=== PATIENT | female | born 2005 | race African-American/Black ===

== ENCOUNTER 2023-04-15 16:58 | Emergency (ER) | payer OTHER, SELFPAY ==
--- NOTE | ~2023-04-15 | CT_ITS ---
EXAMINATION: CT abdomen pelvis w con DATE: 04/15/2023 18:58 INDICATION: RLQ tenderness TECHNIQUE: Computed tomography (CT) of the abdomen and pelvis was performed with 100 mL Omnipaque-350 intravenous contrast. Automated exposure control and iterative reconstruction technique were employe d. The dose-length product was 176.13 mGy-cm. COMPARISON: None. FINDINGS: Lower thorax: Unremarkable Liver: Normal. Biliary/Gallbladder: Gallbladder is normal. No bile duct dilation. Pancreas: No mass or duct dilation. Spleen: Normal. Adrenals:No mass. Kidneys: Contrast noted peripherally in the papillary regions. Multifocal filling defects in the ricardo l calyces bilaterally, left greater than right. Simple right lower pole cyst. No hydronephrosis. No o bstructing calcification or mass.. GI tract: Distal esophageal and gastric wall edema. No small or large bowel dilation. Appendix not co nfidently visualized. No cecal wall thickening. No definite right lower quadrant inflammatory change. Mesentery/Peritoneum: No ascites, mass, or free air. Retroperitoneum: No mass. Pelvis: Heterogeneous deep pelvic fat. Indistinct uterine margin. Mild bladder wall edema and inflamm atory change. Small right ovarian cyst or dominant follicle. Soft Tissues: Soft tissues and body wall unremarkable. Bones: No acute osseous finding. IMPRESSION: Mild esophagitis/gastritis. 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 Appendix not confidently visualized. No cecal wall thickening or definite right lower quadrant inflam matory change. Suggestion of cystitis and inflammatory changes in the uterus/pelvis as can be seen with PID. Correla te with urinalysis and pelvic examination. Reviewed, dictated and finalized at location K. IMPRESSION: Mild esophagitis/gastritis. 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 Appendix not confidently visualized. No cecal wall thickening or definite right lower quadrant inflammatory change. Suggestion of cystitis and inflammatory changes in the uterus/pelvis as can be seen with PID. Correlate with urinalysis and pelvic examination.
[2023-04-15 17:03] VITALS: BP 111/64; PULSE 90; RESP 16; TEMP 36.7; O2SAT 100
[2023-04-15 17:24] LABS: Basophils Percent Auto 0.2 % (0.2-1.2); Eosinophils Percent Auto 0.5 % (0-4.4); Hematocrit 37.6 % (37.0-47.0); Hemoglobin 11.8 g/dL (12.0-15.0); Immature Granulocyte Absolute 0.03 K/mm3 (0.00-0.031); Immature Granulocyte Percent A 0.4 % (0-0.5); Lymphocytes Percent Auto 17.6 % (18.3-44.2); Mean Corpuscular HGB Conc 31.4 g/dl (32-36); Mean Corpuscular Hemoglobin 28.2 pg (26-34); Mean Platelet Volume 10.5 fl (7.4-10.4); Monocytes Absolute Auto 0.8 K/mm3 (0.1-0.6); Monocytes Percent Auto 9.5 % (2.6-8.5); Neutrophils Absolute Auto 6.1 K/mm3 (1.3-6.7); Neutrophils Percent Auto 71.8 % (45.5-73.1); Platelet Count Result 198 k/mm3 (150-375); Red Blood Count 4.18 M/mm3 (4.2-5.4); Red Cell Distribution Width 13.3 % (11.5-14.5); White Blood Count 8.5 K/mm3 (4.5-10.0)
[2023-04-15 17:35] LABS: Alanine Aminotransferase 20 U/L (6-35); Albumin Level 4.4 g/dL (3.7-5.6); Alkaline Phosphatase 64 U/L (45-116); Anion Gap 6 mmol/L (8-16); Aspartate Amino Transferase 26 U/L (14-36); Bilirubin,Total 0.6 mg/dL (0.2-1.3); Blood Urea Nitrogen 15 mg/dL (8-21); Calcium 9.2 mg/dL (8.9-10.7); Carbon Dioxide 29 mmol/L (22-30); Chloride 103 mmol/L (98-107); Estimated CRCL calculation 83 ml/min; Estimated Glomerular Filt Rate > 60; Glucose 83 mg/dL (65-110); Lipase 98 U/L (23-300); Potassium 4.2 mmol/L (3.4-5.0); Sodium 138 mmol/L (134-143)
--- NOTE | 2023-04-15 18:06 | ED.GENADULT ---
HPI - General Adult General Chief complaint: Abdominal Pain Stated complaint: abdominal pain Time Seen by Provider: 04/15/23 18:00 Source: patient Mode of arrival: ambulatory Limitations: no limitations History of Present Illness HPI narrative: This is a 17-year-old female who presents to the ER with chief complaint of right lower quadrant pain ongoing for the past 2 days. Reports the pain is 10 out of 10. Reports the pain radiates from the right lower quadrant superiorly and inferiorly at times. Described as a sharp pain. States she had some pain with urination 2 days ago. Denies any vaginal symptoms or concern for STD. States her last period was earlier this month. Endorses a couple of episodes of loose stools as well. Endorses nausea but no vomiting. Denies fevers, chills, chest pain, shortness of breath, cough. Denies abdominal surgical history. Related Data Allergies Allergy/AdvReac Type Severity Reaction Status Date / Time No Known Allergies Allergy Verified 04/15/23 18:28 Review of Systems Review of Systems: All systems as dictated in HPI Exam Narrative: GENERAL: Tearful on exam. HEAD: Normocephalic, atraumatic. EYES: PERRLA and EOMI. ENT: Nares clear, no rhinorrhea or epistaxis. Mucous membranes moist. Oropharynx without tonsillar hypertrophy exudate or other lesions. NECK: Supple. No adenopathy or masses. CHEST: No respiratory distress. Clear to auscultation. No wheezes rales or rhonchi HEART: Regular rate and rhythm. No murmur heard. Normal peripheral pulses. ABDOMEN: Right lower quadrant and suprapubic abdominal tenderness noted. Developed right flank tenderness noted as well. Negative for flank tenderness. Redman sign negative. Soft, nondistended, normal active bowel sounds. Negative peritoneal signs. MSK: Normal range of motion. No edema. SKIN: Warm, dry, no rash. NEURO: Alert and oriented x3. No focal deficits. PSYCH: Normal mood and affect. Course Course Emergency Course: Reevaluation 1957: Patient had an episode of vomiting. She is having increased pain in the right lower quadrant that is radiating into the right flank. Reevaluation 2099: Patient feeling much better and ready to go home. Vital Signs Vital signs: Vital Signs Temperature 98.0 F 04/15/23 17:03 Pulse Rate 90 04/15/23 17:03 Respiratory Rate 16 04/15/23 17:03 Blood Pressure 111/64 04/15/23 17:03 Pulse Oximetry 100 04/15/23 17:03 Oxygen Delivery Room Air 04/15/23 17:03 Temperature 98.0 F 04/15/23 17:03 Pulse Rate 65 04/15/23 21:10 Respiratory Rate 16 04/15/23 21:10 Blood Pressure 112/75 04/15/23 21:10 Pulse Oximetry 98 04/15/23 21:10 Oxygen Delivery Room Air 04/15/23 17:03 Medical Decision Making MDM Narrative Medical decision making narrative: This is a 17-year-old female who presents to the ED with chief complaint of right lower abdominal pain radiating to the right flank. Vitals are normal. Exam does show right lower quadrant tenderness and right flank tenderness. Lab work shows slight anemia on the CBC but no leukocytosis. CMP unremarkable. UA shows evidence of acute UTI with 2+ leuk esterase, greater than 100 white cells and 3+ bacteria. Culture is pending CT abdomen with IV contrast: Mild esophagitis/gastritis. 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 Appendix not confidently visualized. No cecal wall thickening or definite right lower quadrant inflammatory change. Suggestion of cystitis and inflammatory changes in the uterus/pelvis as can be seen with PID. Correlate with urinalysis and pelvic examination.. Discussed these findings with Dr. Magdaleno (nephrology): He feels that it is very unlikely she has an acute development of renal papillary necrosis without history of sickle cell no other significant NSAID or nephrotoxic drug use. He recommends treating the pyelonephritis and having patient follow-up with therapy doctor regarding t
[2023-04-15 18:32] LABS: Appearance Urine Cloudy (Clear); Bacteria Urine 3+ /hpf; Bilirubin Urine Negative (Negative); Blood Urine 2+ (Negative); Color Urine Yellow (Yellow); Glucose Urine UA Negative (Negative); Ketones Urine Negative (Negative); Leukocyte Esterase Ur 2+ LEU/UL (Negative); Need Manual Microscopic Reviewed; Nitrate Urine Negative (Negative); Protein Urine 1+ mg/dL (Negative); RBC Urine 21-50 /hpf (0-2); Specific Grav Ur 1.021 (1.001-1.035); Squamous Epithelial Cell Urine Occasional /hpf (Few); Urobilinogen Urine 0.2 mg/dL (<2.0); WBC Urine >100 /hpf; pH Urine >=9.0 (5.0-9.0)
[2023-04-15 18:33] LABS: Add Urine Microscopic? YES
[2023-04-15] MEDS: MORPHINE SULFATE (*CRX) 4 MG/ML INJ IV PUSH ×2 (18:36→20:08)
[2023-04-15] MEDS: ONDANSETRON INJ 4 MG/2 ML VIAL IV PUSH ×2 (18:36→19:53)
[2023-04-15] MEDS: Please add drug allergy info to patient profile. 1 EACH XX (18:36)
[2023-04-15 18:37] VITALS: BP 125/69; PULSE 72; RESP 19; O2SAT 100
[2023-04-15 18:59] VITALS: BP 125/78
[2023-04-15 19:01] VITALS: BP 118/74; PULSE 75; RESP 17; O2SAT 100
[2023-04-15] MEDS: SODIUM CHLORIDE 0.9% IV 1,000 ML 999 ML IV CONT (20:09)
[2023-04-15 21:10] VITALS: BP 112/75; PULSE 65; RESP 16; O2SAT 98
== END 2023-04-15 21:11 | disposition home or self-care (01) ==
PROVIDERS: Emergency Medicine; Emergency Provider Physician Assistant
DX: N12 Tubulo-interstitial nephritis, not specified as acute or chronic (principal)
CPT/HCPCS: 36415; 74177; 80053; 81001; 81025; 83690; 85025; 87077; 87086; 87186; 96361; 96365; 96375; 96376; 99284; J0696; J2270; J2405; J7030; Q9967

== ENCOUNTER 2023-04-17 13:43 | Emergency (ER) | payer OTHER, SELFPAY ==
[2023-04-17] VITALS (9 sets, daily range): BP systolic 110–119; BP diastolic 72–84; PULSE 71–89; RESP 15–18; TEMP 36.7; O2SAT 97–100
--- NOTE | ~2023-04-17 | CT_ITS ---
EXAMINATION: CT abdomen pelvis w con DATE: 04/17/2023 18:18 INDICATION: Right lower quadrant pain TECHNIQUE: Computed tomography (CT) of the abdomen and pelvis was performed with 100 cc Omnipaque 350 intravenous contrast. The dose-length product was 190.08 mGy-cm. Automated exposure control and iter ative reconstruction technique were employed. COMPARISON: CT dated 04/15/2023. FINDINGS: Lung bases unremarkable. Heart size normal. No significant pleural or pericardial effusion. There is moderate free fluid in the pelvis. There are right renal cysts. The liver, spleen, pancreas , adrenal glands and left kidney are unremarkable. Gallbladder is present. Nonobstructive bowel gas p attern. No significant vascular abnormality. No lymphadenopathy. There is a right adnexal cyst adjace nt to the bladder measuring 2.6 cm, possibly ovarian. IMPRESSION: 1. Moderate free fluid in the pelvis. 2: Right renal cysts, largest measuring 2.8 cm. 3: Right adnexal cyst measuring 2.6 cm, possibly ovarian. Reviewed, dictated and finalized at location A.
--- NOTE | 2023-04-17 14:02 | ED.GENADULT ---
HPI - General Adult General Chief complaint: Nausea/Vomiting/Diarrhea <Alice Lyon October, - Last Filed: 04/17/23 14:04> Stated complaint: n/v <Alice Lyon October, - Last Filed: 04/17/23 14:04> Time Seen by Provider: 04/17/23 17:01 <Alice Lyon October,N - Last Filed: 04/17/23 14:04> History of Present Illness HPI narrative: Zaynab Walters is a 17 y/o female who presents with reports of being evaluated here 2 days ago and was told she has a uti that went to her kidneys. She got her scripts filled today and when she tried to take her antibiotic she vomitedd and reports she had more abdominal pain, but the abdominal pain has since improved. No fever/chills/flank pain <Alice Lyon October, [employer]SE TREKKING GUIDE - Last Filed: 04/17/23 14:04> Related Data Allergies/adverse reactions: Allergies Allergy/AdvReac Type Severity Reaction Status Date / Time No Known Allergies Allergy Verified 04/15/23 18:28 <Alice Lyon October,N - Last Filed: 04/17/23 14:04> Review of Systems Review of Systems: CONSTITUTIONAL: Denies fever, chills EYES: Denies visual changes, redness, or discharge. ENT: Denies rhinorrhea, congestion, sore throat, or otalgia. CARDIOVASCULAR: Denies chest pain, palpitations, or edema. RESPIRATORY: Denies cough or dyspnea. GASTROINTESTINAL: See HPI GENITOURINARY: Denies dysuria or hematuria. SKIN: Denies rash or itching. MUSCULOSKELETAL: Denies back pain, joint pain, or myalgia. NEUROLOGIC: Denies headache, numbness, dizziness, or weakness. PSYCHIATRIC: Denies anxiety or depression. <Antonia Hodges PA-C - Last Filed: 04/17/23 22:32> Exam Narrative: GENERAL: Well-appearing, in no acute distress. Patient resting comfortably in exam bed. She is pleasant and conversational. HEAD: Normocephalic EYES: PERRLA ENT: Nares clear. Mucous membranes moist. Oropharynx without tonsillar hypertrophy exudate or other lesions. NECK: Supple. CHEST: No respiratory distress. Clear to auscultation, no adventitious breath sounds. HEART: Regular rate and rhythm. No murmur heard. Normal peripheral pulses. ABDOMEN: Normal active bowel sounds. Abdomen soft. Tenderness in the right lower quadrant and suprapubic region. No guarding, rebound or rigidity. Negative Redman's. No CVA tenderness. No overlying skin changes. No peritoneal signs. : No external rashes or lesions to external anterior, vaginal vault and cervix. Moderate amount of white discharge in vaginal vault. Cervical os mildly opened. No CMT. No adnexal masses or tenderness. EXTREMITIES: Normal range of motion. No edema. SKIN: Warm, dry, no rash. NEURO: No focal deficits. Alert and oriented x3. PSYCH: Normal mood and affect. <Antonia Hodges PA-C - Last Filed: 04/17/23 22:32> Course Course Emergency Course: I agree with the above HPI. Additional hx includes the following: Patient presents with her mother at bedside. The patient was prescribed cefdinir and just started it this morning. States she took her first dose with food then shortly after vomited. At that time she was experiencing RLQ and suprapubic pain which has since improved. She has not had anymore episodes of emesis since she was d/c from the ED. Her workup 2 days ago included no leukocytosis, she was afebrile and her CT showed the following: CT abdomen with IV contrast: Mild esophagitis/gastritis. 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 Appendix not confidently visualized. No cecal wall thickening or definite right lower quadrant inflammatory change. Suggestion of cystitis and inflammatory changes in the uterus/pelvis as can be seen with PID. Correlate with urinalysis and pelvic examination.. Case was discussed with federal appellate law clerk, Dr. Magdaleno it was felt that the patient likely has pyelonephritis. She was discharged home with cefdinir, Zofran and [place]. Patient states she has not taken her Zofran today. I also discussed concerns for STD given CT findings. She has no rudy
[2023-04-17] MEDS: ONDANSETRON HCL ODT 4 MG TABLET PO (14:05)
[2023-04-17 14:10] LABS: Basophils Percent Auto 0.2 % (0.2-1.2); Eosinophils Percent Auto 0.1 % (0-4.4); Hemoglobin 12.4 g/dL (12.0-15.0); Immature Granulocyte Absolute 0.02 K/mm3 (0.00-0.031); Immature Granulocyte Percent A 0.2 % (0-0.5); Lymphocytes Absolute Auto 1.11 K/mm3 (0.9-3.2); Lymphocytes Percent Auto 13.1 % (18.3-44.2); Mean Corpuscular HGB Conc 32.6 g/dl (32-36); Mean Corpuscular Hemoglobin 28.2 pg (26-34); Mean Corpuscular Volume 86.6 fl (80-100); Mean Platelet Volume 10.2 fl (7.4-10.4); Monocytes Absolute Auto 0.5 K/mm3 (0.1-0.6); Monocytes Percent Auto 5.5 % (2.6-8.5); Neutrophils Absolute Auto 6.8 K/mm3 (1.3-6.7); Neutrophils Percent Auto 80.9 % (45.5-73.1); Platelet Count Result 211 k/mm3 (150-375); Red Blood Count 4.39 M/mm3 (4.2-5.4); Red Cell Distribution Width 13.2 % (11.5-14.5); White Blood Count 8.5 K/mm3 (4.5-10.0)
[2023-04-17 14:21] LABS: Anion Gap 10 mmol/L (8-16); Blood Urea Nitrogen 11 mg/dL (8-21); Calcium 9.9 mg/dL (8.9-10.7); Carbon Dioxide 26 mmol/L (22-30); Chloride 102 mmol/L (98-107); Estimated CRCL calculation 84 ml/min; Estimated Glomerular Filt Rate > 60; Glucose 87 mg/dL (65-110); Potassium 3.8 mmol/L (3.4-5.0); Sodium 138 mmol/L (134-143)
--- NOTE | 2023-04-17 17:04 | PC.NURSE ---
care and report given to SHANE Walsh. all questions answered.
[2023-04-17 17:24] LABS: Appearance Urine Cloudy (Clear); Bacteria Urine None Seen /hpf; Bilirubin Urine Negative (Negative); Color Urine Yellow (Yellow); Glucose Urine UA Negative (Negative); Ketones Urine 3+ mg/dL (Negative); Leukocyte Esterase Ur 2+ LEU/UL (Negative); Nitrate Urine Negative (Negative); Non Pathogenic Casts 0-2; Protein Urine 1+ mg/dL (Negative); Specific Grav Ur 1.022 (1.001-1.035); Squamous Epithelial Cell Urine Few /hpf (Few); WBC Urine 21-50 /hpf
[2023-04-17 17:39] LABS: Add Urine Microscopic? YES
[2023-04-17] MEDS: SODIUM CHLORIDE 0.9% IV 1,000 ML 999 ML IV CONT (17:45)
[2023-04-17] MEDS: ONDANSETRON INJ 4 MG/2 ML VIAL IV PUSH (17:46)
[2023-04-17] MEDS: FAMOTIDINE 20 MG/2 ML VIAL IV PUSH (17:46)
[2023-04-17] MEDS: KETOROLAC 30 MG/ML VIAL (*BKC) IV PUSH (17:46)
[2023-04-17 19:37] LABS: Lipase 67 U/L (23-300)
[2023-04-17 21:28] LABS: Chlamydia trachomatis NOT DETECTED (NOT DETECTE); Neisseria gonorrhoeae PCR NOT DETECTED (NOT DETECTE)
[2023-04-18 00:34] LABS: Trichomonas Vag PCR NOT DETECTED (NOT DETECTE)
== END 2023-04-17 22:55 | disposition home or self-care (01) ==
PROVIDERS: Nurse Practitioner Family; Emergency Provider Physician Assistant
DX: N83.201 Unspecified ovarian cyst, right side (principal); R82.90 Unspecified abnormal findings in urine; N28.1 Cyst of kidney, acquired
CPT/HCPCS: 36415; 74177; 80048; 81001; 81025; 83690; 85025; 87070; 87086; 87491; 87591; 87661; 96361; 96374; 96375; 99284; A9270; J1885; J2405; J7030; Q9967

== ENCOUNTER 2023-09-06 12:18 | Emergency (ER) | payer SELFPAY ==
--- NOTE | 2023-09-06 12:21 | PC.NURSE ---
pt mother up to desk inquiring why her daughter that was brought in by ambulance is in the waiting room. mother made aware of dept status and aware that pt would be triaged in a few minutes. mother then voiced maybe we should go somewhere else
[2023-09-06 12:25] VITALS: BP 136/70; PULSE 89; RESP 16; TEMP 36.6; O2SAT 100
[2023-09-06 13:26] VITALS: BP 119/82; PULSE 82; RESP 19; O2SAT 100
[2023-09-06 13:48] LABS: Basophils Percent Auto 0.3 % (0.2-1.2); Eosinophils Percent Auto 0.3 % (0-4.4); Hematocrit 38.4 % (37.0-47.0); Hemoglobin 12.3 g/dL (12.0-15.0); Immature Granulocyte Absolute 0.04 K/mm3 (0.00-0.031); Immature Granulocyte Percent A 0.4 % (0-0.5); Lymphocytes Absolute Auto 2.03 K/mm3 (0.9-3.2); Lymphocytes Percent Auto 18.5 % (18.3-44.2); Mean Corpuscular Hemoglobin 28.6 pg (26-34); Mean Corpuscular Volume 89.3 fl (80-100); Mean Platelet Volume 10.5 fl (7.4-10.4); Monocytes Absolute Auto 1.2 K/mm3 (0.1-0.6); Monocytes Percent Auto 10.5 % (2.6-8.5); Neutrophils Absolute Auto 7.7 K/mm3 (1.3-6.7); Platelet Count Result 224 k/mm3 (150-375); Red Cell Distribution Width 13.4 % (11.5-14.5)
[2023-09-06 13:58] VITALS: BP 107/75; PULSE 74; RESP 20; O2SAT 97
[2023-09-06 14:01] LABS: Alanine Aminotransferase 16 U/L (6-35); Albumin Level 4.7 g/dL (3.5-5.1); Alkaline Phosphatase 77 U/L (38-126); Anion Gap 8 mmol/L (8-16); Aspartate Amino Transferase 24 U/L (14-36); Bilirubin,Total 0.5 mg/dL (0.2-1.3); Blood Urea Nitrogen 13 mg/dL (7-17); Calcium 9.7 mg/dL (8.4-10.2); Carbon Dioxide 24 mmol/L (22-30); Chloride 105 mmol/L (98-107); Estimated CRCL calculation 100 ml/min; Estimated Glomerular Filt Rate > 60; Glucose 96 mg/dL (65-110); Lipase 62 U/L (23-300); Potassium 3.5 mmol/L (3.4-5.0); Sodium 137 mmol/L (137-145)
[2023-09-06 14:20] LABS: Bacteria Urine 2+ /hpf; Need Manual Microscopic Reviewed; RBC Urine >100 /hpf (0-2); Squamous Epithelial Cell Urine None Seen /hpf (Few); WBC Urine >100 /hpf (0-3)
[2023-09-06 14:22] LABS: Appearance Urine Turbid (Clear); Bilirubin Urine Negative (Negative); Blood Urine 3+ (Negative); Glucose Urine UA Negative (Negative); Ketones Urine Trace mg/dL (Negative); Leukocyte Esterase Ur 2+ LEU/UL (Negative); Nitrate Urine Negative (Negative); Protein Urine 3+ mg/dL (Negative); Specific Grav Ur 1.019 (1.001-1.035); Urobilinogen Urine 0.2 mg/dL (<2.0)
[2023-09-06 14:23] LABS: Color Urine Light Amber (Yellow)
[2023-09-06 14:24] LABS: Add Urine Microscopic? YES
--- NOTE | 2023-09-06 14:36 | ED.FEMALEGU ---
HPI - Female Genitourinary General Chief complaint: Urogenital-Female Stated complaint: flank pain/hematuria Time Seen by Provider: 09/06/23 14:26 History of Present Illness HPI Narrative: Pt presents with dysuria and frequency and intermittent right flank pain for several days. Pt also has whitish vaginal discharge. Pt has history of chlamydia per pt. Pt denies nausea, vomiting or fever. Related Data Allergies Allergy/AdvReac Type Severity Reaction Status Date / Time No Known Allergies Allergy Verified 04/15/23 18:28 Review of Systems Review of Systems: All systems reviewed & are unremarkable except as noted in HPI and below Exam Const: General: healthy appearing and no acute distress Nutritional Appearance: well nourished Orientation/consciousness: patient oriented x3 Limitations: no limitations Eyes: Conjunctivae: conjunctivae normal Pupils: Equal, round and reactive pupils present EOM: EOMs intact bilaterally Neck: Neck: normal visual inspection Chest: Chest palpation & inspection: normal inspection of the chest Resp: Effort & Inspection: normal respiratory effort Auscultation: clear to auscultation bilaterally Cardio: Rate: regular rate Rhythm: regular rhythm GI: GI Palp: Yes Soft to palpation Auscultation: normal bowel sounds : Other: pelvic no discharge noted cervix no tender swabs obtained Skin: General skin exam: normal color Rashes: no rashes Neuro: General: patient oriented x3, moves all extremities, no meningeal signs, no focal motor deficits and CN's II-XI intact bilaterally Speech: normal speech Extrem: General: normal to inspection, no clubbing, cyanosis or edema and no pedal edema Psych: Appearance: grossly normal Mental Status: mental status grossly normal Affect: normal affect Attitude: cooperative Course Vital Signs Vital signs: Vital Signs Temperature 97.8 F 09/06/23 12:25 Pulse Rate 89 09/06/23 12:25 Respiratory Rate 16 09/06/23 12:25 Blood Pressure 136/70 09/06/23 12:25 Pulse Oximetry 100 09/06/23 12:25 Oxygen Delivery Room Air 09/06/23 12:25 Temperature 97.8 F 09/06/23 12:25 Pulse Rate 78 09/06/23 15:30 Respiratory Rate 17 09/06/23 15:30 Blood Pressure 106/73 09/06/23 15:30 Pulse Oximetry 99 09/06/23 15:30 Oxygen Delivery Room Air 09/06/23 12:25 MDM - Female Genitourinary MDM Narrative Medical decision making narrative: Pt presents with uti symptoms and flank pain and discharge. no discharge seen on exam. treated for gc/chlamydia wiith rocephin and zithromax, rocephine will also treat pyelonephritis. Pt not vomiting so should be able to go home on antibiotics Differential Diagnosis Differential diagnosis: Likely urinary tract infection, bacterial vaginosis, trichomoniasis, cervicitis, vaginitis and cystitis Lab Data 09/06/23 13:30 09/06/23 13:30 Labs: Lab Results 09/06/23 09/06/23 Range/Units 13:30 16:05 WBC 11.0 H (4.5-10.0) K/mm3 RBC 4.30 (4.2-5.4) M/mm3 Hgb 12.3 (12.0-15.0) g/dL Hct 38.4 (37.0-47.0) % MCV 89.3 (80-100) fl MCH 28.6 (26-34) pg MCHC 32.0 (32-36) g/dl RDW 13.4 (11.5-14.5) % Plt Count 224 (150-375) k/mm3 MPV 10.5 H (7.4-10.4) fl Immature Gran % (Auto) 0.4 (0-0.5) % Neut % (Auto) 70.0 (45.5-73.1) % Lymph % (Auto) 18.5 (18.3-44.2) % [place] % (Auto) 10.5 H (2.6-8.5) % Eos % (Auto) 0.3 (0-4.4) % Baso % (Auto) 0.3 (0.2-1.2) % Lymph # (Auto) 2.03 (0.9-3.2) K/mm3 [place] # (Auto) 1.2 H (0.1-0.6) K/mm3 Eos # (Auto) 0.0 (0-0.3) K/mm3 Baso # (Auto) 0.0 (0.0-0.1) K/mm3 Abs Immat Gran (auto) 0.04 H (0.00-0.031) K/mm3 Absolute Neuts (auto) 7.7 H (1.3-6.7) K/mm3 Absolute Nucleated RBC 0.000 (0.0-0.012) K/mm3 Nucleated RBC % 0.0 (0.0-0.2) % Sodium 137 (137-145) mmol/L Potassium 3.5 (3.4-5.0) mmol/L Chloride 105 (98-107) mmol/L Carbon Dioxide 24 (22-30) mmol/
[2023-09-06] MEDS: AZITHROMYCIN 250 MG TABLET 1000 MG PO (15:24)
[2023-09-06] MEDS: LIDOCAINE HCL 1% LOCAL INJ 10 ML VIAL (15:25)
[2023-09-06] MEDS: cefTRIAXone 1 GM VIAL IM (15:25)
[2023-09-06 15:30] VITALS: BP 106/73; PULSE 78; RESP 17; O2SAT 99
[2023-09-06 17:24] LABS: Trichomonas Vag PCR NOT DETECTED (NOT DETECTE)
[2023-09-06 17:50] LABS: Chlamydia trachomatis NOT DETECTED (NOT DETECTE); Neisseria gonorrhoeae PCR NOT DETECTED (NOT DETECTE)
== END 2023-09-06 16:15 | disposition home or self-care (01) ==
PROVIDERS: Emergency Medicine; Emergency Provider Emergency Medicine; Referring Provider Emergency Medicine
DX: N12 Tubulo-interstitial nephritis, not specified as acute or chronic (principal)
CPT/HCPCS: 36415; 80053; 81025; 83690; 85025; 87077; 87086; 87088; 87186; 87205; 87491; 87591; 87661; 96372; 99284; A9270; J0696

== ENCOUNTER 2024-02-04 12:26 | Emergency (ER) | payer SELFPAY ==
[2024-02-04 12:37] VITALS: BP 115/67; PULSE 89; RESP 19; TEMP 36.3; O2SAT 100
--- NOTE | 2024-02-04 15:07 | PC.NURSE ---
Pt ambulated out of ER w/out notifying scale agent. This RN asked pt if she was leaving, pt nodded and continued to walk out in NAD w/ steady gait. Visitor w/ pt stated Yeah, we are leaving the wait is too long.
== END 2024-02-04 16:16 | disposition left against medical advice (07) ==
DX: R11.2 Nausea with vomiting, unspecified (principal)
CPT/HCPCS: 99199

== ENCOUNTER 2024-04-12 15:48 | Emergency (ER) | payer SELFPAY ==
--- NOTE | ~2024-04-12 | XR_ITS ---
XR chest 2V Ordering provider: Juan Cantu PA-C History: 18 years Female with . chest pain, DIZZINESS X 1 DAY . Comparison: None. FINDINGS: MEDIASTINUM: The cardiac silhouette is not enlarged. LUNGS: No infiltrates, effusions or pneumothorax. OTHER: No free air under the diaphragm. IMPRESSION: No acute cardiopulmonary pathology. Reviewed, dictated and finalized at location A.
--- NOTE | 2024-04-12 16:53 | ED.DIZZY ---
HPI - Dizziness General Chief Complaint: Dizziness Stated Complaint: dizzy, forgetful Time Seen by Provider: 04/12/24 16:46 Focused HPI: This is a 18-year-old female who presents to the ED for multiple complaints. She has been having episodes recently where everything it becomes to real. States that she feels tightness in her abdominal muscles and her lower extremity muscles associated with chest tightness, shortness of breath and tingling in the hands. Also reports lightheadedness and headaches that come on. She states these episodes have been intermittent over the past several days but it does seem like everything comes on at once. She states that she went to [facility] yesterday but no one told me anything. GENERAL: Well-appearing, well-nourished, and in no acute distress. HEAD: Normocephalic, atraumatic. CHEST: Clear to auscultation. No respiratory distress. HEART: Regular rate and rhythm. NEURO: Alert and oriented x3. Patient screened in triage and initial orders placed. Additional care and disposition to be based upon diagnostic testing and treatment. Source: patient Mode of arrival: ambulatory Limitations: no limitations Related Data Allergies Allergy/AdvReac Type Severity Reaction Status Date / Time No Known Allergies Allergy Verified 04/15/23 18:28 MDM - Dizziness Lab Data 04/12/24 17:03 04/12/24 17:03 Labs: Lab Results 04/12/24 Range/Units 17:03 WBC 4.2 L (4.5-10.0) K/mm3 RBC 4.23 (4.2-5.4) M/mm3 Hgb 12.3 (12.0-15.0) g/dL Hct 37.5 (37.0-47.0) % MCV 88.7 (80-100) fl MCH 29.1 (26-34) pg MCHC 32.8 (32-36) g/dl RDW 13.3 (11.5-14.5) % Plt Count 197 (150-375) k/mm3 MPV 9.9 (7.4-10.4) fl Immature Gran % (Auto) 0.2 (0-0.5) % Neut % (Auto) 42.7 L (45.5-73.1) % Lymph % (Auto) 42.7 (18.3-44.2) % [place] % (Auto) 12.2 H (2.6-8.5) % Eos % (Auto) 1.7 (0-4.4) % Baso % (Auto) 0.5 (0.2-1.2) % Lymph # (Auto) 1.79 (0.9-3.2) K/mm3 [place] # (Auto) 0.5 (0.1-0.6) K/mm3 Eos # (Auto) 0.1 (0-0.3) K/mm3 Baso # (Auto) 0.0 (0.0-0.1) K/mm3 Abs Immat Gran (auto) 0.01 (0.00-0.031) K/mm3 Absolute Neuts (auto) 1.8 (1.3-6.7) K/mm3 Absolute Nucleated RBC 0.000 (0.0-0.012) K/mm3 Nucleated RBC % 0.0 (0.0-0.2) % Sodium 140 (137-145) mmol/L Potassium 3.8 (3.4-5.0) mmol/L Chloride 102 (98-107) mmol/L Carbon Dioxide 28 (22-30) mmol/L Anion Gap 10 (4-12) mmol/L BUN 14 (7-17) mg/dL Creatinine 0.70 (0.7-1.0) mg/dL Estim Creat Clear Calc Not Reportable Estimated GFR > 60 (59 - ) Glucose 94 (65-110) mg/dL Calcium 9.1 (8.4-10.2) mg/dL Total Bilirubin 0.5 (0.2-1.3) mg/dL AST 24 (14-36) U/L ALT 13 (6-35) U/L Alkaline Phosphatase 66 (38-126) U/L Total Protein 8.0 (6.3-8.2) g/dL Albumin 4.6 (3.5-5.1) g/dL TSH (Reflex) 0.262 L (0.465-4.68) uIU/mL Free T4 1.32 (0.78-2.19) ng/dL Total T3 1.23 (0.97-1.69) NG/ML Discharge Plan Discharge Clinical Impression: Anxiety, Abnormal TSH Patient Disposition: [facility] After Seen by Prov Condition: Stable Prescriptions: No Action cefdinir 300 mg capsule 300 mg PO Q12H 10 Days Qty: 20 0RF hydrocodone-acetaminophen 5-325 mg tablet 1 tablet PO Q8H PRN (Reason: pain) Qty: 9 0RF ondansetron 4 mg tablet,disintegrating 4 mg PO Q8H PRN (Reason: nausea and vomiting) Qty: 10 0RF cefdinir 300 mg capsule 300 mg PO Q12H Qty: 20 0RF ondansetron 4 mg tablet,disintegrating 4 mg PO Q8H PRN (Reason: nausea and vomiting) Qty: 10 0RF Follow-up/Referrals: PHYSICIAN,PROOF LOAD MECHANIC [Primary Care Provider] -
--- NOTE | 2024-04-12 16:55 | ECG_ITS ---
Test Date: 2024-04-12 17:09:09 Measurements Intervals [place] Rate: 78 P: 63 AR: 137 QRS: 86 QRSD: 75 T: 44 QT: 352 QTc: 403 Interpretive Statements SINUS RHYTHM EARLY REPOLARIZATION OTHERWISE NORMAL ECG No previous ECG available for comparison Electronically Signed On 04-13-2024 13:10:53 CDT by Rosales Menjivar M.D.
[2024-04-12 17:13] LABS: Basophils Percent Auto 0.5 % (0.2-1.2); Eosinophils Absolute Auto 0.1 K/mm3 (0-0.3); Eosinophils Percent Auto 1.7 % (0-4.4); Hematocrit 37.5 % (37.0-47.0); Hemoglobin 12.3 g/dL (12.0-15.0); Immature Granulocyte Absolute 0.01 K/mm3 (0.00-0.031); Immature Granulocyte Percent A 0.2 % (0-0.5); Lymphocytes Absolute Auto 1.79 K/mm3 (0.9-3.2); Lymphocytes Percent Auto 42.7 % (18.3-44.2); Mean Corpuscular HGB Conc 32.8 g/dl (32-36); Mean Corpuscular Hemoglobin 29.1 pg (26-34); Mean Corpuscular Volume 88.7 fl (80-100); Mean Platelet Volume 9.9 fl (7.4-10.4); Monocytes Absolute Auto 0.5 K/mm3 (0.1-0.6); Monocytes Percent Auto 12.2 % (2.6-8.5); Neutrophils Absolute Auto 1.8 K/mm3 (1.3-6.7); Neutrophils Percent Auto 42.7 % (45.5-73.1); Platelet Count Result 197 k/mm3 (150-375); Red Blood Count 4.23 M/mm3 (4.2-5.4); Red Cell Distribution Width 13.3 % (11.5-14.5); White Blood Count 4.2 K/mm3 (4.5-10.0)
[2024-04-12 17:27] LABS: Alanine Aminotransferase 13 U/L (6-35); Albumin Level 4.6 g/dL (3.5-5.1); Alkaline Phosphatase 66 U/L (38-126); Anion Gap 10 mmol/L (4-12); Aspartate Amino Transferase 24 U/L (14-36); Bilirubin,Total 0.5 mg/dL (0.2-1.3); Blood Urea Nitrogen 14 mg/dL (7-17); Calcium 9.1 mg/dL (8.4-10.2); Carbon Dioxide 28 mmol/L (22-30); Chloride 102 mmol/L (98-107); Estimated Glomerular Filt Rate > 60; Glucose 94 mg/dL (65-110); Potassium 3.8 mmol/L (3.4-5.0); Sodium 140 mmol/L (137-145)
[2024-04-12 18:08] LABS: Thyroid Stimulating Hormone Reflex 0.262 uIU/mL (0.465-4.68)
[2024-04-12 19:12] LABS: Free T4 Free Thyroxine Reflex 1.32 ng/dL (0.78-2.19)
[2024-04-12 19:58] LABS: Total Triiodothyronine (T3) 1.23 NG/ML (0.97-1.69)
--- NOTE | 2024-04-12 20:20 | PC.NURSE ---
pt elopes before getting to a room. patient was seen by DARYA Dominguez in triage but left ER before getting to room for results. patient states symptoms have resolved and will return if they feel it's necessary. pt ambulates with steady gait and appears in no resp. distress.
== END 2024-04-12 20:23 | disposition left against medical advice (07) ==
LOC: ANHED 20:35
PROVIDERS: Emergency Provider Physician Assistant
DX: F41.9 Anxiety disorder, unspecified (principal); R94.6 Abnormal results of thyroid function studies
CPT/HCPCS: 36415; 71046; 80053; 84439; 84443; 84480; 85025; 93005; 99283